=== PATIENT | female | born 1995 | race Two or more races ===

== ENCOUNTER 2024-10-11 12:06 | Observation (INO) | payer BC, SELFPAY ==
[2024-10-11 12:18] VITALS: BP 133/84; PULSE 107
[2024-10-11 12:31] VITALS: BP 133/84; PULSE 107; RESP 18; RESP 99; TEMP 36.9
[2024-10-11 12:33] VITALS: BMI 25.0
[2024-10-11 12:39] LABS: Collection Type, Urine Clean Catch
[2024-10-11 13:08] LABS: Bacteria,Urine 1+; Bilirubin,Urine Negative (Negative); Blood,Urine Negative (Negative); Clarity,Urine Clear (Clear/Hazy); Color,Urine Yellow (Lt Yel-Yel); Glucose, Urine Trace (Negative); Hyaline Casts,Urine < 1 /hpf (0-1); Ketones,Urine 1+ (Negative); Leukocyte Esterase,Urine Positive (Negative); Nitrite,Urine Negative (Negative); PH,Urine 6.5 (5.0-7.0); Protein,Urine Trace (Neg - Trace); RBC,Urine 1 /hpf (0-3); Specific Gravity,Urine 1.019 (1.001-1.035); Squamous Epithelial Cell,Urine 5 /hpf (0-5); Urobilinogen,Urine Negative mg/dL (0.0-1.0); WBC,Urine 4 /hpf (0-5)
[2024-10-11 13:15] LABS: FFN Specimen Descripton Other; Fetal Fibronectin Negative (Negative)
== END 2024-10-11 13:30 | disposition home or self-care (01) ==
PROVIDERS: Admitting Provider Specialist; PCP Physician Assistant; Visit Provider Specialist
DX: O26.893 Other specified pregnancy related conditions, third trimester (principal); Z3A.28 28 weeks gestation of pregnancy; R25.2 Cramp and spasm
CPT/HCPCS: 59025; 59899; 81001; 82731

== ENCOUNTER 2024-11-27 10:23 | Inpatient (IN) | payer BC, SELFPAY ==
[2024-11-27] VITALS (13 sets, daily range): BP systolic 99–125; BP diastolic 57–85; PULSE 69–100; RESP 12–100; TEMP 36.6–36.8; O2SAT 100; BMI 26.5
--- NOTE | 2024-11-27 10:52 | PD.LDHP ---
Documentation for date of: 11/27/24 OB Labor/Induct. HPI History of Present Illness History of present illness: H and P dictated STAT line #9 in [facility] [id number] History of Present Adequate Care: Yes Meds Home Medications and Allergies Home Medications ?Medication ?Instructions ?Recorded ?Confirmed ?Type cyclobenzaprine 10 mg tablet 10 mg PO HS 07/07/19 07/07/19 History gabapentin 300 mg capsule 300 mg PO QDAY 07/07/19 07/07/19 History Allergies Allergy/AdvReac Type Severity Reaction Status Date / Time No Known Allergies Allergy Verified 07/07/19 19:36 OB Exam Physical Exam Vital signs: Temp Pulse Resp BP 97.9 F 100 18 125/85 H 11/27/24 10:34 11/27/24 10:33 11/27/24 10:33 11/27/24 10:33
--- NOTE | 2024-11-27 10:54 | XR_ITS ---
Examination: Complete OB ultrasound greater than 14 weeks Date and time of exam: November 27, 2024 1113 hrs. Indications: Labor evaluation, unknown presentation unknown size Findings: Viable intrauterine single fetus with single amniotic sac presentation breech Cardiac motion 141 BPM Placenta anterior grade 3 Umbilical cord insertion seen Amniotic fluid index 1.8 cm Cervix 3.0 cm spine anterior Ovaries obscured by the uterus. Composite estimated gestational age based on BPD, head circumference, abdominal circumference, femur length is 34 weeks 5 days Estimated weight 2455.9 g. Survey of intracranial anatomy, spinal anatomy, abdominal anatomy, four-chamber heart performed with no abnormalities identified. Impression: Viable intrauterine gestation breech presentation Estimated gestational age 34 weeks 5 days Estimated weight 2455.9 g Amniotic fluid index 1.8 cm
[2024-11-27] MEDS: BETAMET ACET/BETAMET NA PH (Celestone) 6 MG/ML VIAL 12 MG IM (11:03)
[2024-11-27] MEDS: RINGERS LACTATED 1000 ML 1,000 ML 125 ML IV (11:03)
[2024-11-27] MEDS: Ampicillin Inj 2,000 MG in SODIUM CHLORIDE 0.9% (P) 100 ML 200 MG IV (11:08)
[2024-11-27 11:21] LABS: Basophils % (Auto) 0 % (0-2.5); Eosinophils # (Auto) 0.1 Thou/mm3 (0.0-0.5); Eosinophils % (Auto) 1 % (0-10); Hemoglobin 10.1 g/dL (12.0-16.0); Immature Granulocytes % (Auto) 0 % (0-0); Immature Granulocytes Auto 0.04 Thou/mm3 (0.00-0.00); Lymphocytes # (Auto) 2.2 Thou/mm3 (1.0-4.8); Lymphocytes % (Auto) 21 % (10-50); Mean Corpuscular HGB Conc 33.7 g/dl (31.0-37.0); Mean Corpuscular Hemoglobin 27.8 pg (25.0-35.0); Mean Corpuscular Volume 83 fL (80-100); Monocytes # (Auto) 0.8 Thou/mm3 (0.0-0.8); Monocytes % (Auto) 7 % (0-12); Neutrophils # (Auto) 7.5 Thou/mm3 (1.8-7.7); Neutrophils % (Auto) 71 % (37-80); Nucleated Red Blood Cell % 0 /100 WBC (0); Platelet Count 287 Thou/mm3 (140-440); RDW Standard Deviation 39.4 fL (36.4-46.3); Red Blood Count 3.63 Miln/mm3 (4.00-5.20); White Blood Count 10.7 Thou/mm3 (3.6-11.0)
[2024-11-27 11:32] LABS: ROM Kit Lot # 57809118
[2024-11-27 11:33] LABS: ROM Swab Mixed By: ASTOA1; Rupture of Fetal Membranes Positive (Negative); Swb Mxed in Solvent 1 min? Yes
[2024-11-27 12:05] LABS: Syphilis Nonreactive (Nonreactive)
[2024-11-27] MEDS: FAMOTIDINE INJ 10 MG/ML VIAL 2 ML 20 MG IV (12:16)
[2024-11-27] MEDS: ceFAZolin/D5W 2 GM IV 2 GM/100 ML BAG IV (12:16)
[2024-11-27] MEDS: CITRIC ACID/SODIUM CITR 15 ML UDC (BICITRA) 30 ML PO (12:16)
[2024-11-27 12:21] LABS: Amphetamine/Metham Scrn,Ur OB Negative (Negative); Benzoylecgonine Screen, Ur OB Negative (Negative); Opiate Screen,Urine OB Negative (Negative); THC Screen,Urine OB Negative (Negative)
--- NOTE | 2024-11-27 12:29 | PD.LDPN ---
Documentation for date of: 11/27/24 OB Labor Progress Note Assessment and Plan Comments: Ultrasound shows breech presentation with an NEGIN of 1.8. Estimated weight is 2455 g consistent with a growth at the 41 percentile. Will proceed with delivery Informed consent obtained. The patient was made aware of the risk complications alternatives and benefits of the proposed procedure and she agrees.
--- NOTE | 2024-11-27 13:07 | ESHP_ITS ---
RE: ALIDA BRITT : 1995 DATE OF ADMISSION: 11/27/2024 HISTORY OF PRESENT ILLNESS: This is a 29-year-old 7, para 0-0-6-0 with a due date of 01/03/2025 with intrauterine at 34 weeks and 5 days who presents to labor and delivery complaining of leaking fluid and is noted to be grossly ruptured. The patient denies any contractions. She reports normal movement. She denies any bleeding. Her care was complicated by iron deficiency anemia. Her most recent ultrasound on 11/08 showed breech presentation. The nurse is unable to determine presentation at this time and a stat ultrasound is pending. ALLERGIES: NO KNOWN DRUG ALLERGIES. MEDICATIONS: 1. multivitamin one p.o. daily. 2. Ferrous sulfate 325 mg one p.o. b.i.d. 3. Omeprazole 20 mg one p.o. daily p.r.n. heartburn. PAST MEDICAL HISTORY: Gastroesophageal reflux disease, carpal tunnel syndrome, iron deficiency anemia, recurrent loss, fibromyalgia. OBSTETRIC HISTORY: Six previous first trimester spontaneous abortions without D and C. PAST SURGICAL HISTORY: Denies. REVIEW OF SYSTEMS: She denies any chest pain, palpitations, cough, fever, shortness of breath, or lower extremity pain. PHYSICAL EXAMINATION: VITAL SIGNS: Blood pressure 133/69, heart rate 89, respirations 18, temperature 98.2, weight 167 pounds. HEENT: Oropharynx and sclerae are clear. LUNGS: Clear to auscultation bilaterally. HEART: Regular rate and rhythm. ABDOMEN: Gravid consistent with 34 weeks gestation. PELVIC: See RN notes. EXTREMITIES: Nontender. SKIN: No gross rash or lesion. NEUROLOGIC: No focal deficits. ASSESSMENT: 1. Intrauterine at 34 weeks and 5 days. 2. premature rupture of membranes, unknown presentation, not in labor. PLAN: Betamethasone for lung maturity, ampicillin for group B strep prophylaxis, stat OB ultrasound for presentation. If breech, plan to proceed with delivery. If vertex, we will plan to proceed with induction of labor. I discussed with the patient the nature of her condition and the recommended treatment plan. All questions answered. DT: 10:50:50 TT: 13:06:00 Ref: [id number] - TID: [id number]
--- NOTE | 2024-11-27 13:22 | PD.LDDELS ---
Data ([facility]) Data : 7 Para: 0 Term: 0 : 0 : 6 Delivery Data ([facility]) Labor Data ROM Date: 11/27/24 ROM Time: 10:00 Rupture Type: SROM Amniotic Fluid: Clear Delivery Data EDC: 01/03/25 EDC calculated by:: LMP/early US confirmation Labor Onset Stage 1 Date: 11/27/24 Labor Onset Stage 1 Time: 10:00 Labor Onset Stage 2 Date: 11/27/24 Labor Onset Stage 2 Time: 12:50 Delivery Date: 11/27/24 Delivery Time: 12:50 Placenta Delivery Date: 11/27/24 Placenta Delivery Time: 12:51 Delivered by: Christiano Salazar Delivery nurse: Eladia Seo Other staff at delivery: Baby Care/Gin Operator Other staff at delivery: Nursery Nurse Other staff at delivery: Room Service Food Service Attendant Other staff at delivery: Scrub Other staff at delivery: MD Rowland Omid Other staff at delivery: Lisa Malcolm Other staff at delivery: Paulina Horton Other staff at delivery: Emily Salas Delivery Method Delivery: Delivery Type: Primary Presentation: Leonard Breech Anesthesia Type Primary Anesthesia: Spinal Placenta Placenta Delivery: Manual Placenta Cultures Obtained: No Placenta Sent for Examination: No Cord Sample: Cord Blood Obtained EBL Estimated blood loss (ml): 600 Umbilical Cord Nuchal Cord: x2 Additional Procedures None Complications Complications: None [place] Data (Sharp) [place] Data Gender: Male Infant Weight Grams: 2520 1 Minute Total: 9 5 Minute Total: 9
--- NOTE | 2024-11-27 16:16 | ESOP_ITS ---
RE: ALIDA BRITT : 1995 DATE OF OPERATION: 11/27/2024 PREOPERATIVE DIAGNOSES: 1. Intrauterine at 34 weeks and 5 days. 2. premature ruptured membranes. 3. Breech presentation. 4. Recurrent loss. POSTOPERATIVE DIAGNOSES: 1. Intrauterine at 34 weeks and 5 days. 2. premature ruptured membranes. 3. Breech presentation. 4. Recurrent loss. 5. Bicornuate uterus. 6. Endometriosis. PROCEDURE PERFORMED: Primary low transverse section via Pfannenstiel skin incision. SURGEON: Christiano Salazar DO ACTIVITY SPECIALIST: MARIVEL Cardona ANESTHESIA: Spinal. ANESTHESIOLOGIST: Rex Noel CRNA ESTIMATED BLOOD LOSS: 600 mL COMPLICATIONS: None. COUNTS: Correct. PATHOLOGY: None. FINDINGS: Alive, male , ismael breech presentation, no amniotic fluid. 9 and 9, weight 2520 g, nuchal cord x2, bicornuate uterus with fetus in the right uterine horn, endometriotic implants on both ovaries and posterior uterosacral ligaments, placenta removed complete and intact. DESCRIPTION OF PROCEDURE: After proper informed consent was obtained and the patient was made aware of the risks, complications, alternatives, and benefits of the proposed procedure, she was taken to the operating room where she underwent induction of spinal anesthesia. She was placed in the dorsal supine position with the leftward tilt. She was prepped and draped in the usual sterile fashion. A timeout was performed. A Pfannenstiel skin incision was made with the scalpel carried through to the underlying layer of fascia with the Bovie. The fascia was nicked in the midline and incision extended bilaterally with the Bovie. The inferior aspect of the fascial incision was grasped with Jorje clamps and elevated. The underlying rectus muscle was dissected off with the Bovie. The superior aspect of the fascial incision was grasped with Jorje clamps and elevated. The underlying rectus muscles were dissected off with the Bovie. The rectus muscle was in the midline with the Bovie. The peritoneum was grasped between two Alonzo clamps and entered sharply with the Metzenbaum scissors. The incision was extended superiorly and inferiorly with good visualization of the bladder. The bladder blade was then inserted. Vesicouterine peritoneum was incised transversely, the bladder flap created digitally. The bladder blade was reinserted. The low uterine segment was incised transversely with the scalpel. The incision was extended bilaterally digitally. The 's head delivered. The mouth and nose were suctioned with bulb suction. The shoulder and body delivered atraumatically. The cord was camped and cut. The was sent off to awaiting pediatric staff. Cord blood and gases were sent. The placenta was then removed manually. The uterus was exteriorized and cleared of all clots and debris and the uterus incision was closed with #1-0 chromic catgut suture in a running locking fashion. The second layer of the same suture was used to imbricate the first layer and obtained excellent hemostasis. The vesicouterine peritoneum was closed with 2-0 chromic catgut suture in running fashion. The uterus was returned to the abdomen. The gutters were cleared off all clots and debris. The peritoneum was closed with a 0 chromic catgut suture in running fashion. The muscle was closed with a 0 chromic catgut suture in running fashion. The fascia was closed with 0 Vicryl beginning at each angle and ending in center in running fashion. Subcutaneous tissue was irrigated with normal saline solution and found to be hemostatic and closed with 2-0 chromic catgut suture in a running fashion. The skin was closed with 4-0 Monocryl and covered with Dermabond. Sterile pressure dressing was applied. She tolerated the procedure well. Counts were correct. I discussed with the patient, the nature of her condition, the intraoperative findings, and expectations for recovery. All questions were answered. DT: 13:25:36 TT: 16:13:00 Ref: [id number] - TID: [id number]
[2024-11-27] MEDS: KETOROLAC INJ 30 MG/ML VIAL IVP (17:09)
[2024-11-27] MEDS: OXYTOCIN in NS 20 units 20 UNIT/1,000 ML BAG 125 UNIT IV (17:11)
[2024-11-27 18:20] LABS: Basophils % (Auto) 0 % (0-2.5); Eosinophils % (Auto) 0 % (0-10); Hematocrit 29.6 % (36.0-46.0); Immature Granulocytes % (Auto) 0 % (0-0); Immature Granulocytes Auto 0.08 Thou/mm3 (0.00-0.00); Lymphocytes # (Auto) 0.8 Thou/mm3 (1.0-4.8); Lymphocytes % (Auto) 4 % (10-50); Mean Corpuscular HGB Conc 33.8 g/dl (31.0-37.0); Mean Corpuscular Hemoglobin 28.2 pg (25.0-35.0); Mean Corpuscular Volume 84 fL (80-100); Monocytes # (Auto) 0.1 Thou/mm3 (0.0-0.8); Monocytes % (Auto) 1 % (0-12); Neutrophils # (Auto) 17.6 Thou/mm3 (1.8-7.7); Neutrophils % (Auto) 95 % (37-80); Nucleated Red Blood Cell % 0 /100 WBC (0); Platelet Count 289 Thou/mm3 (140-440); RDW Standard Deviation 39.7 fL (36.4-46.3); Red Blood Count 3.54 Miln/mm3 (4.00-5.20); White Blood Count 18.6 Thou/mm3 (3.6-11.0)
[2024-11-27] MEDS: ONDANSETRON INJ 2 MG/ML INJ 2 ML 4 MG IV (19:33)
[2024-11-28 00:03] VITALS: BP 114/71; PULSE 80; RESP 16; TEMP 36.6; O2SAT 99
[2024-11-28 04:24] VITALS: BP 106/62; PULSE 84; RESP 19; TEMP 36.7; O2SAT 96
[2024-11-28 08:00] VITALS: BP 118/80; PULSE 82; RESP 16; TEMP 36.7; O2SAT 97
--- NOTE | 2024-11-28 08:54 | ESPR_ITS ---
RE: ALIDA BRITT : 1995 DATE OF SERVICE: 11/28/2024 S: Postoperative day #1, the patient denies any problem or complaints. She is voiding, ambulating, tolerated regular diet, passing flatus. She denies any excessive vaginal bleeding. She denies any dizziness or lightheadedness. She denies any chest pain, palpitations, shortness of breath, or lower extremity pain. She denies any depression or anxiety. Baby is in the NICU. O: Vital Signs: Blood pressure 106/62, heart rate 84, respirations 19, temperature is 98.1, and pulse ox is 96% on room air. Lungs: Clear to auscultation bilaterally. Heart: Regular rate and rhythm. Abdomen: Dressing dry and intact. Fundus is firm. Extremities: Nontender. Laboratory Data: Hemoglobin pre-delivery is 10.1 and post delivery is 10.0. A: Postoperative day #1, status post delivery. P: Remove dressing, discontinue IV, cruise consultant, and encourage ambulation. DT: 07:59:28 TT: 08:52:00 Ref: [id number] - TID: [id number]
[2024-11-28 11:20] VITALS: BP 113/71; PULSE 70; RESP 17; TEMP 37.2; O2SAT 98
[2024-11-28] MEDS: HYDROcodone/APAP 5/325 TABLET 1 TAB PO (12:40)
[2024-11-28] MEDS: IBUPROFEN TAB 400 MG TABLET 800 MG PO (17:21)
[2024-11-28 20:00] VITALS: BP 105/60; PULSE 93; RESP 17; TEMP 36.9; O2SAT 97
[2024-11-29 03:40] VITALS: BP 106/65; PULSE 65; RESP 16; TEMP 36.9; O2SAT 97
[2024-11-29] MEDS: HYDROcodone/APAP 5/325 TABLET 2 TAB PO (04:50)
--- NOTE | 2024-11-29 07:02 | PD.LDDS ---
DS: Providers Provider Date of admission: 11/27/24 10:46 Primary care physician: Physician No Primary/Family Admitting Provider: Christiano Salazar MD Attending Provider on Admission: Christiano Salazar MD Consults: 11/27/24 14:07 Referral Routine Comment: Attending Provider on DC: Christiano Salazar MD Discharging Provider: Christiano Salazar MD DS: Diagnosis Problem List Completed Was Problem List Reviewed/Reconciled?: Yes Summary/Hosp Course Brief History: H and P dictated STAT line #9 in [facility] [id number] Peripartum Data Procedures: Procedures Operation Date: 11/27/24 12:45 Actual Procedure Side Surgeon p in OB Bilateral Christiano Salazar MD Time Spent with Patient Time attestation: Total time spent providing and/or coordinating discharge services: Exam Vital Signs Temp Pulse Resp BP Pulse Ox O2 Del Method 98.4 F 65 16 106/65 97 Room Air 11/29/24 03:40 11/29/24 03:40 11/29/24 03:40 11/29/24 03:40 11/29/24 03:40 11/29/24 03:40 Discharge Plan Plan Patient Disposition: HOME (Self Care) Patient condition on transfer: Stable Prescriptions/Referrals Prescriptions/Med Rec: New hydrocodone-acetaminophen 5-325 mg tablet 1 tab PO Q6H MDD 4 PRN (Reason: pain) Qty: 20 0RF No Action gabapentin 300 mg capsule 300 mg PO QDAY cyclobenzaprine 10 mg tablet 10 mg PO HS Referrals: No Primary/Family,Physician [Primary Care Provider] - Patient/Caregiver Discharge Instructions Discharge Activity: activity as tolerated Other Discharge Activity Instructions:: Follow up office 1 week. Education Materials: C Section Dc Print Language: Occitan Stand Alone Forms: Esme Award Info., Patient Portal Info Letter Planned Discharge Date 11/29/24
--- NOTE | 2024-11-29 07:42 | ESPR_ITS ---
RE: ALIDA BRITT : 1995 DATE OF SERVICE: 04/28/2025 SUBJECTIVE: Postop day #2. The patient denies any problem or complaints. She is voiding. She is ambulating. She tolerated her diet. She is passing flatus. She denies any excessive vaginal bleeding. She denies any dizziness or lightheadedness. She denies any chest pain, palpitations, shortness of breath, or lower extremity pain. She denies any depression or anxiety. OBJECTIVE: Vital Signs: Blood pressure 106/65, heart rate 65, respirations 16, temperature is 98.4, pulse ox is 97% on room air. Lungs: Clear to auscultation bilaterally. Heart: Regular rate and rhythm. Abdomen: Incision clean and intact. Fundus is firm. Extremities: Nontender. ASSESSMENT: Postop day #2, status post delivery. PLAN: Discharge home. Discharge instructions given. Follow up in the office in one week. DT: 07:05:29 TT: 07:40:00 Ref: [id number] - TID: [id number]
[2024-11-29 08:15] VITALS: BP 113/71; PULSE 78; RESP 16; TEMP 36.3; O2SAT 98
== END 2024-11-29 10:05 | disposition home or self-care (01) | DRG 786 ==
LOC: S4SX 11:43 → S4NX 12:40
PROVIDERS: Admitting Provider Specialist; Visit Provider Specialist
PROC: 10D00Z1 Extraction of Products of Conception, Low, Open Approach (ICD-10-PCS; CPT 59514; principal; 2024-11-27 12:30)
DX: O42.013 Preterm premature rupture of membranes, onset of labor within 24 hours of rupture, third trimester (principal); O60.14X0 Preterm labor third trimester with preterm delivery third trimester, not applicable or unspecified; O69.81X0 Labor and delivery complicated by cord around neck, without compression, not applicable or unspecified; O32.1XX0 Maternal care for breech presentation, not applicable or unspecified; Z37.0 Single live birth; Z3A.34 34 weeks gestation of pregnancy; O26.23 Pregnancy care for patient with recurrent pregnancy loss, third trimester; O34.03 Maternal care for unspecified congenital malformation of uterus, third trimester; Q51.3 Bicornate uterus; N80.9 Endometriosis, unspecified; O99.02 Anemia complicating childbirth; D50.9 Iron deficiency anemia, unspecified
CPT/HCPCS: 36415; 59409; 76805; 80307; 84112; 85025; 86780; 86850; 86900; 86901; 94762; A4649; J0290; J0689; J0702; J1100; J1885; J2250; J2274; J2371; J2405; J2590; J3490; J7120; A9270; J2270